=== PATIENT | female | born 1990 | race Caucasian/White ===

== ENCOUNTER 2020-05-01 12:15 | Observation (INO) | payer BC ==
[~2020-05-01] VITALS: Ht 162.6 cm; Wt 112.1 kg
[2020-05-01] MEDS ORDERED: SODIUM CHLORIDE 0.9% 1000ML 1,000 ML IV STA (12:27)
[2020-05-01 13:42] LABS: CLARITY,URINE CLEAR (CLEAR); COLOR,URINE YELLOW (YELLOW); KETONES,URINE NEGATIVE (NEGATIVE); LEUKOCYTE ESTERASE ,URINE NEGATIVE (NEGATIVE); NITRITE,URINE NEGATIVE (NEGATIVE); PROTEIN,URINE DIPSTICK NEGATIVE (NEGATIVE)
[2020-05-01 13:43] LABS: BILIRUBIN,URINE NEGATIVE (NEGATIVE); PREGNANCY TEST, URINE NEGATIVE (NEGATIVE); URINE UROBILINOGEN 0.2 mg/dL (0.2 - 1)
--- NOTE | 2020-05-01 13:51 | NUR ---
numerous attempts at an iv unsuccessful; dr. sagastume informed
[2020-05-01 14:00] LABS: WBC,URINE (MAN) 0-5 /HPF (0-5)
[2020-05-01 14:01] LABS: BACTERIA,URINE MODERATE /HPF; EPITHELIAL CELLS,URINE MODERATE /LPF; RBC,URINE 0-5 /HPF (0-5)
[2020-05-01 14:08] LABS: BASOPHILS % 0.3 % (0.0-1.0); EOSINOPHILS # (AUTO) 0.1 (0.0-0.4); EOSINOPHILS % 0.9 % (0.0-6.0); HEMATOCRIT 40.4 % (34.2-44.1); HEMOGLOBIN 12.2 g/dL (12.0-16.0); LYMPHOCYTES # (AUTO) 3.1 (1.0-3.2); LYMPHOCYTES % 21.7 % (18.0-39.1); MEAN CORPUSCULAR HEMOGLOBIN 25.6 pg (28-32); MEAN CORPUSCULAR HGB CONC 30.2 g/dL (31-35); MEAN CORPUSCULAR VOLUME 84.7 fL (81-99); MONOCYTES # (AUTO) 0.6 (0.2-0.8); MONOCYTES % 4.3 % (4.4-11.3); NEUTROPHILS # (AUTO) 10.2 (2.1-6.9); NEUTROPHILS % 72.4 % (38.7-80.0); PLATELET COUNT 353 x10e3/uL (140-360); RED BLOOD COUNT 4.77 x10e6/uL (3.6-5.1); RED CELL DISTRIBUTION WIDTH 13.8 % (11.7-14.4)
[2020-05-01 14:29] LABS: ALANINE AMINOTRANSFERASE 18 IU/L (0-55); ALBUMIN 3.6 g/dL (3.5-5.0); ALKALINE PHOSPHATASE 85 IU/L (40-150); ANION GAP 14.6 mmol/L (8-16); BLOOD UREA NITROGEN 10 mg/dL (7-26); BUN/CREATININE RATIO 15 (6-25); CALCIUM 8.8 mg/dL (8.4-10.2); CARBON DIOXIDE 23 mmol/L (22-29); CHLORIDE 105 mmol/L (98-107); CREATINE KINASE 79 IU/L (29-168); CREATININE, SERUM 0.66 mg/dL (0.57-1.11); EST GLOMERULAR FILTRATION RATE > 60 ML/MIN (60-); GLUCOSE 82 mg/dL (74-118); POTASSIUM 4.6 mmol/L (3.5-5.1); SODIUM 138 mmol/L (136-145)
[2020-05-01] MEDS ORDERED: ONDANSETRON HCL INJ 2MG/ML 2ML 2 MG/ML VIAL IV ONE (15:14)
[2020-05-01] MEDS ORDERED: MECLIZINE HCL 12.5 MG TAB PO ONE (15:15)
--- NOTE | 2020-05-01 15:19 | Emergency Department Note ---
History of Present Illnes History of Present Illness Chief Complaint: Neurological History of Present Illness This is a 29 year old female arrived to the ED with concerns of elevated WBC count and platelets. Patient states she also feeling extremely lethargic week and unsteady on her feet. Chief Complaint Comment C/O OF SENSATION OF WANTING TO PASS OUT. SYMPTOMS STARTED 04/25. DENIES ANY SHORTNESS OF BREATH OR CHEST PAIN. Apr HAD BLOOD WORK DRAWN. SHE WAS TOLD SHE HAD ELEVATED WBC/PLATELETS AND HAD THEM REDRAWN APR 27 AND TOLD THE BLOOD WORK HAD NOT CHANGED. SHE WAS REFERED TO A SPORTS DOCTOR. SHE HAS BEEN WAITING FOR THEIR CALL TO SET UP APPT. Historian: Patient Arrival Mode: Car Additional Treatment PEOPLESOFT FUNCTIONAL ANALYST: NONE Onset (how long ago): day(s) Severity: mild Duration (how long): day(s) Timing of current episode: constant Progression: waxing and waning Chronicity: recurrent Relieving factors: none Exacerbating factors: none Past Medical/Family History Physician Review I have reviewed the patient's past medical and family history. Any updates have been documented here. Past Medical History Recent Fever: No Clinical Suspicion of Infectio: No New/Unexplained Change in Ment: No Past Medical History: None, Depression, GERD Other Medical History: BIPOLAR Past Surgical History: T&A Other Surgery: WISDOM TEETH LEFT FOOT BENIGN TUMOR RIGHT FOOT FACIATIS Social History Smoking Cessation: Never Smoker Counseling Performed: No Alcohol Use: None Any Illegal Drug Use: No Other Any Pre-Existing Lines (PICC,: No Review of Systems Review of Systems Constitutional: Reports no symptoms EENTM: Reports no symptoms Cardiovascular: Reports no symptoms Respiratory: Reports no symptoms Gastrointestinal: Reports no symptoms Genitourinary: Reports no symptoms Musculoskeletal: Reports no symptoms Integumentary: Reports no symptoms Neurological: Reports no symptoms Psychological: Reports no symptoms Endocrine: Reports no symptoms Hematological/Lymphatic: Reports no symptoms Physical Exam Related Data Allergies: Coded Allergies: No Known Allergies (Unverified , 05/01/20) Triage Vital Signs Vital Signs Date Time Temp Pulse Resp B/P (MAP) Pulse Ox O2 Delivery O2 Flow Rate FiO2 05/01/20 12:34 98.4 81 18 131/88 100 Room Air Vital signs reviewed: Yes Physical Exam CONSTITUTIONAL Constitutional: Present well-developed, Present well-nourished, Present obese HENT HENT: Present normocephalic, Present atraumatic, Present oropharynx clear/moist, Present nose normal HENT L/R: Present left ext ear normal, Present right ext ear normal EYES Eyes: Reports PERRL, Reports conjunctivae normal NECK Neck: Present ROM normal PULMONARY Pulmonary: Present effort normal, Present breath sounds normal CARDIOVASCULAR Cardiovascular: Present regular rhythm, Present heart sounds normal, Present capillary refill normal, Present normal rate GASTROINTESTINAL Abdominal: Present soft, Present nontender, Present bowel sounds normal GENITOURINARY Genitourinary: Present exam deferred SKIN Skin: Present warm, Present dry MUSCULOSKELETAL Musculoskeletal: Present ROM normal NEUROLOGICAL Neurological: Present alert, Present oriented x 3, Present no gross motor or sensory deficits PSYCHOLOGICAL Psychological: Present mood/affect normal, Present judgement normal Results Laboratory Result Diagram: 05/01/20 1400 05/01/20 1400 Laboratory Laboratory Tests Test 05/01/20 14:00 05/01/20 12:46 White Blood Count 14.14 x10e3/uL (4.8-10.8) Red Blood Count 4.77 x10e6/uL (3.6-5.1) Hemoglobin 12.2 g/dL (12.0-16.0) Hematocrit 40.4 % (34.2-44.1) Mean Corpuscular Volume 84.7 fL (81-99) Mean Corpuscular Hemoglobin 25.6 pg (28-32) Mean Corpuscular Hemoglobin Concent 30.2 g/dL (31-35) Red Cell Distribution Width 13.8 % (11.7-14.4) Platelet Count 353 x10e3/uL (140-360) Neutrophils (%) (Auto) 72.4 % (38.7-80.0) Lymphocytes (%) (Auto) 21.7 % (18.0-39.1) Monocytes (%) (Auto) 4.3 % (4.4-11.3) Eosinophils (%) (Auto) 0.9 % (0.0-6.0) Basophils (%) (Auto) 0.3 % (0.0-1.0) Neutrophils # (Auto) 10.2 (2.1-6.9) Lymphocytes # (Auto) 3.1 (1.0-3.2) Monocytes # (Auto) 0.6 (0.2-0.8) Eosinophils # (Auto) 0.1 (0.0-0.4) Basophils # (Auto) 0.0 (0.0-0.1) Absolute Immature Granulocyte (auto 0.05 x10e3/uL (0-0.1) Sodium Level 138 mmol/L (136-145) Potassium Level 4.6 mmol/L (3.5-5.1) Chloride Level 105 mmol/L (98-107) Carbon Dioxide Level 23 mmol/L (22-29) Anion Gap 14.6 mmol/L (8-16) Blood Urea Nitrogen 10 mg/dL (7-26) Creatinine 0.66 mg/dL (0.57-1.11) Estimat Glomerular Filtration Rate > 60 ML/MIN (60-) BUN/Creatinine Ratio 15 (6-25) Glucose Level 82 mg/dL (74-118) Calcium Level 8.8 mg/dL (8.4-10.2) Total Bilirubin 0.3 mg/dL (0.2-1.2) Aspartate Amino Transf (AST/SGOT) 21 IU/L (5-34) Alanine Aminotransferase (ALT/SGPT) 18 IU/L (0-55) Alkaline Phosphatase 85 IU/L (40-150) Creatine Kinase 79 IU/L (29-168) Creatine Kinase MB 1.10 ng/mL (0-5.0) Troponin I 0.024 ng/mL (0-0.300) Total Protein 7.1 g/dL (6.5-8.1) Albumin 3.6 g/dL (3.5-5.0) Globulin 3.5 g/dL (2.3-3.5) Albumin/Globulin Ratio 1.0 (0.8-2.0) Urine Color Yellow (YELLOW) Urine Clarity Clear (CLEAR) Urine pH 7 (5 - 7) Urine Specific [place] 1.025 (1.010-1.025) Urine Protein Negative (NEGATIVE) Urine Glucose (UA) Negative (NEGATIVE) Urine Ketones Negative (NEGATIVE) Urine Blood Negative (NEGATIVE) Urine Nitrite Negative (NEGATIVE) Urine Bilirubin Negative (NEGATIVE) Urine Urobilinogen 0.2 mg/dL (0.2 - 1) Urine Leukocyte Esterase Negative (NEGATIVE) Urine RBC 0-5 /HPF (0-5) Urine WBC 0-5 /HPF (0-5) Urine Epithelial Cells Moderate /LPF (NONE) Urine Bacteria Moderate /HPF (NONE) Urine Test Negative (NEGATIVE) Imaging Imaging results reviewed: Yes Assessment & Plan Medical Decision Making MDM 29-year-old female arrives to the ED with concerns of elevated WBC and platelets. Platelets were normal in the ER leukocytosis was noted. Patient received a CT scan of her abdomen and pelvis to ensure no splenic process. ET findings were questional for a liver abscess/mass. Patient noted to have a [place] of pending white count from a week ago. Patient was admitted for an MRI further workup and management. Assessment & Plan Final Impression: (1) Liver mass Depart Disposition: ADMITTED Last Vital Signs Date Time Temp Pulse Resp B/P (MAP) Pulse Ox O2 Delivery O2 Flow Rate FiO2 05/01/20 14:27 80 17 135/83 100 Room Air 05/01/20 12:34 98.4 Medications in the ED Sodium Chloride 1,000 ml @ 0 mls/hr Q0M STAT IV Last administered on 05/01/20at 13:59; Admin Dose 999 MLS/HR; Start 05/01/20 at 12:27; Stop 05/01/20 at 12:29; Status DC KALEE ENG, May 01, 2020 15:19
[2020-05-01] MEDS ORDERED: SODIUM CHLORIDE 0.9% 50ML 50 ML ONE (15:37)
[2020-05-01] MEDS ORDERED: IOPAMIDOL 370 MG/ML 200 ML INFUS..BTL INJ ONE (15:38)
--- NOTE | 2020-05-01 16:04 | NUR ---
PT REQUESTED TO TAKE HER OWN REFLUX MEDICATION; GAVE THE OKAY
--- NOTE | 2020-05-01 16:15 | Diagnostic Imaging Report ---
EXAM: CT Abdomen and Pelvis WITH contrast INDICATION: Leukocytosis. COMPARISON: None. TECHNIQUE: Abdomen and pelvis were scanned utilizing a multidetector helical scanner from the lung base to the pubic symphysis after administration of IV contrast. Coronal and sagittal reformations were obtained. Routine protocol was performed. Scan was performed when during portal venous phase. IV CONTRAST: 100 cc of Isovue-370. ORAL CONTRAST: Water COMPLICATIONS: None RADIATION DOSE: Total DLP: 847.8 mGy*cm Estimated effective dose: (DLP x 0.015 x size factor) mSv CTDIvol has been reviewed. It is below the limits set by the Radiation Protocol Committee (RPC). FINDINGS: LINES and TUBES: None. LOWER THORAX: Unremarkable HEPATOBILIARY: Hepatic dome is partially excluded from the [id number]. Diffuse mild hepatic steatosis. There is a somewhat linear/ovoid appearing hypodensity in the periphery of the right hepatic lobe, measuring up to 2.2 cm on series 2, image 14. No biliary ductal dilation. No evidence of intraparenchymal or subcapsular hematoma. GALLBLADDER: No radio-opaque stones or sludge. No wall thickening. SPLEEN: No splenomegaly. PANCREAS: No focal masses or ductal dilatation. ADRENALS: No adrenal nodules KIDNEYS/URETERS: Kidneys enhance symmetrically. No evidence of hydronephrosis, solid mass, or stone. GI TRACT: No evidence of wall thickening or distension. Appendix is normal. Moderate amount of stool in the colon. PELVIC ORGANS/BLADDER: Unremarkable. LYMPH NODES: No lymphadenopathy. VESSELS: Unremarkable. PERITONEUM / RETROPERITONEUM: No free air or fluid. BONES AND SOFT TISSUES: Unremarkable. CONCLUSION: Somewhat linear/ovoid 2.2 cm hypodensity in the periphery of the right hepatic lobe. Differential includes hepatic laceration, however there is no evidence of adjacent hematoma or soft tissue abnormality. Hepatic mass or abscess are also on the differential. Recommend clinical correlation. Suggest follow-up liver protocol CT or MRI if there is no history of trauma. No evidence of lymphadenopathy in the abdomen or pelvis. Signed by: Dr. Magda Amezcua MD on 05/01/2020 4:12 PM
--- NOTE | 2020-05-01 16:38 | NUR ---
DR. ENG IN TO SPEAK WITH THE PATIENT RE POC/PENDING ADMISSION
--- OUTSIDE RECORDS SUMMARY | 2020-05-01 16:54 | XMS REPORT | Clinical Summary ---
Author Author [facility] Address Unknown Phone Unavailable Care Team Providers Care Color Finisher Name Role Phone Asked, No Pcp PCP Unavailable Allergies No Known Active Allergies Medications Not on file Active Problems Not on file Social History Date Tobacco Use Types Packs/Day Years Used Never Assessed Sex Assigned at Date Recorded Not on file Last Filed Vital Signs Not on file Plan of Treatment Health Maintenance Due Date Last Done Comments CERVICAL CANCER SCREENING 2011 INFLUENZA VACCINE 02/13/2020 Results Not on fileafter 05/01/2019 Insurance Type Payer Benefit Subscriber ID Effective Phone Address Plan / Dates Group HMO CIGLIZANDRO MCINTOSH [id number] 2017-P LOCAL resent PLUS/SUREF IT Advance Directives For more information, please contact: [phone] Patient Mobile Paint Specialist Explanation Type Date Recorded Advance Directives, Living Will and Medical Power of Human Resource Analyst
--- OUTSIDE RECORDS SUMMARY | 2020-05-01 16:54 | XMS REPORT | Continuity of Care Document ---
Author Author [facility] t Organization [facility] Address [address] [place] [address] Phone Unavailable Care Team Providers Care Bond Analyst Name Role Phone Asked, Pcp No PCP Unavailable Johanna ENG Attphys Unavailable Corby LOERA, Toby Attphys Amy LOERA, Elyssa Attphys Vls-Lab Attphys Unavailable Problems This patient has no known problems. Allergies, Adverse Reactions, Alerts This patient has no known allergies or adverse reactions. Social History Social Habit Start Date Stop Date Quantity Comments Source Sex Assigned At Alfred bobrocael Gonzalez Medications This patient has no known medications. Procedures This patient has no known procedures. Plan of Care Planned Activity Planned Date Details Comments Source Future Scheduled Test 2020-02-13 00:00:00 INFLUENZA VACCINE [code = INFLUENZA VACCINE] [facility] Future Scheduled Test 2011 00:00:00 Screening for eris gnant neoplasm of cervix (procedure) [code = 754468523] [facility] Encounters Start Date/Time End Date/Time Encounter Type Admission Type Attendi RUST Care Department Encounter ID Source 2020-04-29 17:41:00 2020-04-29 17:41:00 Emergency E [id number] [facility] 2020-04-29 00:00:00 2020-04-29 00:00:00 Telephone Toby Tavarez [facility] [id number] 2020-04-29 00:00:00 2020-04-29 00:00:00 Telephone Elyssa Reyes [facility] [id number] 2020-04-28 00:00:00 2020-04-28 00:00:00 Telephone Toby Tavarez [facility] [id number] 2020-04-28 00:00:00 2020-04-28 00:00:00 [facility] [id number] 2020-04-27 14:45:02 2020-04-27 15:00:02 Decision Analyst Visit V ls-Lab [facility] [id number] 2020-04-27 00:00:00 2020-04-27 00:00:00 Telephone José Miguel Tavarezmichael [facility] [id number] 2020-04-25 13:19:20 2020-04-26 14:11:27 Office Visit José Miguel Ruizmichael [facility] [id number] 2020-04-26 00:00:00 2020-04-26 00:00:00 Telephone Elyssa Reyes [facility] [id number] Results Test Description Test Time Test Comments Results Result Comments Source CT ABDOMEN/PELVIS W 2020-05-01 16:03:00 [facility] : 1990 Sex: F [place] [address] Patient Name: MAX RAGSDALE MR #: [id number] : 1990 Age/Sex: 29/F Req #: [id number] Adm Physician: Ordered by: KALEE ENG DO Report #: [id number] Location: ER Room/Bed: Procedure: [id number] CT/CT ABDOMEN/PELVIS W Exam Date: 05/01/20 Exam Time: 1537 REPORT STATUS: Signed EXAM: CT Abdomen and Pelvis WITH contrast INDICATION: Leukocytosis. COMPARISON: None. TECHNIQUE: Abdomen and pelvis were scanned utilizing a multidetector helical scanner from the lung base to the pubic symphysis after administration of IV contrast. Coronal and sagittal reformations were obtained. Routine protocol was performed. Scan was performed when during portal venous phase. IV CONTRAST: 100 cc of Isovue-370. ORAL CONTRAST: Water COMPLICATIONS: None RADIATION DOSE: Total DLP: 847.8 mGy*cm Estimated effective dose: (DLP x 0.015 x size factor) mSv CTDIvol has be en reviewed. It is below the limits set by the Radiation Protocol Committee (RPC). FINDINGS: LINES and TUBES: None. LOWER THORAX: Unremarkable HEPATOBILIARY: Hepatic dome is partially excluded from the [id number]. Diffuse mild hepatic steatosis. There is a somewhat linear/ovoid appearing hypodensity in the periphery of the right hepatic lobe, measuring up to 2.2 cm on series 2, image 14. No biliary ductal dilation. No evidence of intraparenchymal or subcapsular hematoma. GALLBLADDER: No radio-opaque stones or sludge. No wall thickening. SPLEEN: No splenomegaly. PANCREAS: No focal masses or ductal dilatation. ADRENALS: No adrenal nodules KIDNEYS/URETERS: Kidneys enhance symmetrically. No evidence of hydronephrosis, solid mass, or stone. GI TRACT: No evidence of wall thickening or distension. Appendix is normal. Moderate amount of stool in the colon. PELVIC ORGANS/BLADDER: Unremarkable. LYMPH NODES: No lymphadenopathy. VESSELS: Unremarkable. PERITONEUM / RETROPERITONEUM: No free air or fluid. BONES AND SOFT TISSUES: Unremarkable. CONCLUSION: Somewhat linear/ovoid 2.2 cm hypodensity in the periphery of the right hepatic lobe. Differential includes hepatic laceration, however there is no evidence of adjacent hematoma or soft tissue abnormality. Hepatic mass or abscess are also on the differential. Recommend clinical correlation. Suggest follow-up liver protocol CT or MRI if there is no history of trauma. No evidence of lymphadenopathy in the abdomen or pelvis. Signed by: Dr. Roosevelt Alaniz MD on 05/01/2020 4:12 PM Dictated By: ROOSEVELT ALANIZ MD 161 Transcribed By: SAVAAN on 05/01/201611 COPY TO: KALEE ENG DO
[2020-05-01] MEDS ORDERED: SERTRALINE HCL50 MG (18:21)
[2020-05-01] MEDS ORDERED: PANTOPRAZOLE SO40 MG (18:21)
[2020-05-01] MEDS ORDERED: ARIPIPRAZOLE5 MG (18:21)
[2020-05-01 18:40] VITALS: BP 133/76
[2020-05-01 20:11] VITALS: BP 121/67
[2020-05-01 20:16] VITALS: BP 121/67
[2020-05-01] MEDS ORDERED: INFLUENZA VIRUS VAC SPLIT INJ 0.5 ML SYR IM SCH (20:16)
[2020-05-01 20:20] VITALS: BP 121/67
[2020-05-01] MEDS ORDERED: ACETAMINOPHEN 325 MG TAB PO PRN (20:30)
[2020-05-01] MEDS ORDERED: ZOLPIDEM TARTRATE 5 MG TAB PO PRN (20:30)
[2020-05-01] MEDS ORDERED: ONDANSETRON HCL INJ 2MG/ML 2ML 2 MG/ML VIAL IV PRN (20:30)
--- NOTE | 2020-05-01 20:31 | NUR ---
Spoke to Dr Gamez regarding patient requesting home medication abilify 5 mg po for bedtime, no PRN meds, c/o headache 11/21: new orders for PRN meds. Okay to remove tele for MRI in am.
[2020-05-01] MEDS: ARIPIPRAZOLE 5 MG TABLET PO SCH (21:01)
[2020-05-01 23:51] VITALS: BP 105/51
[2020-05-02 05:22] VITALS: BP 106/60
--- NOTE | 2020-05-02 06:21 | NUR ---
H&P cc: light headedness HPI: 29yoF, PCP , developed dizziness/lightheadedness, but no abdominal pain, found to have liver mass. PMH: mood d/o, GERD, HTN PSHx: tonsillectomy, plantar fasciitis related, left leg tumor (benign) Allergies; see emr Fh'SH; no cigs/illicits meds; see MAR ROS: no f/c/s/N/V/D/DE [place] CRUZ/cp/sob/skin rash/abdominal pain/confusion/vision changes/focal limb weakness v/s revd PE tired appearing anicteric ns1s2 mod bs soft nt nd no e/t; negative Henderson's sign skin dry n. affect a&ox3; rizo labs/meds revd A/P: 29yoF Right liver mass- check MRI; GI eval Leukocytosis- empiric tx with zosyn in case it is an abscess; GERD- ppi Mood d/o- SSI Severe obesity- 1/2 portion sizes needed BMI 42.4- screen for DM and check lipids Prop; scd; ppi Dispo: f/u MRI TRE DOMINGUEZ MD, PHD
[2020-05-02 06:31] LABS: BASOPHILS % 0.3 % (0.0-1.0); EOSINOPHILS # (AUTO) 0.2 (0.0-0.4); HEMATOCRIT 37.1 % (34.2-44.1); HEMOGLOBIN 11.3 g/dL (12.0-16.0); LYMPHOCYTES # (AUTO) 4.1 (1.0-3.2); LYMPHOCYTES % 39.5 % (18.0-39.1); MEAN CORPUSCULAR HEMOGLOBIN 25.9 pg (28-32); MEAN CORPUSCULAR HGB CONC 30.5 g/dL (31-35); MEAN CORPUSCULAR VOLUME 84.9 fL (81-99); MONOCYTES # (AUTO) 0.7 (0.2-0.8); MONOCYTES % 6.2 % (4.4-11.3); NEUTROPHILS # (AUTO) 5.4 (2.1-6.9); NEUTROPHILS % 51.7 % (38.7-80.0); PLATELET COUNT 333 x10e3/uL (140-360); RED BLOOD COUNT 4.37 x10e6/uL (3.6-5.1)
[2020-05-02] MEDS ORDERED: SODIUM CHLORIDE 0.9% 250ML 250 ML ONE (06:47)
[2020-05-02 06:59] LABS: ALANINE AMINOTRANSFERASE 15 IU/L (0-55); ALBUMIN 3.2 g/dL (3.5-5.0); ALBUMIN/GLOBULIN RATIO 1.1 (0.8-2.0); ALKALINE PHOSPHATASE 78 IU/L (40-150); BLOOD UREA NITROGEN 7 mg/dL (7-26); BUN/CREATININE RATIO 9 (6-25); CALCIUM 8.5 mg/dL (8.4-10.2); CARBON DIOXIDE 26 mmol/L (22-29); CHLORIDE 106 mmol/L (98-107); CREATININE, SERUM 0.75 mg/dL (0.57-1.11); EST GLOMERULAR FILTRATION RATE > 60 ML/MIN (60-); GLUCOSE 99 mg/dL (74-118); SODIUM 140 mmol/L (136-145)
[2020-05-02 07:12] LABS: CHOL/HDL RATIO 2.7 (3.0-3.6)
--- NOTE | 2020-05-02 07:15 | NUR ---
Bedside report and walking rounds completed with oncoming nurse. Patient in bed with call light within reach. No issues or concerns noted.
[2020-05-02] MEDS: PIPER-TAZ 3.375 GM 50 ML IV SCH ×3 (07:32→18:06)
[2020-05-02 08:07] VITALS: BP 137/67
[2020-05-02 08:40] VITALS: BP 137/67
[2020-05-02] MEDS ORDERED: SODIUM CHLORIDE 0.9% 50ML 50 ML ONE (08:41)
[2020-05-02] MEDS ORDERED: GADOBENATE DIMEGLUMINE 1 ML IV ONE (08:41)
[2020-05-02] MEDS: PANTOPRAZOLE SOD 40 MG TABEC PO SCH (09:40)
[2020-05-02] MEDS: SERTRALINE HCL 50 MG TAB PO SCH (09:40)
[2020-05-02 12:21] VITALS: BP 130/60
--- NOTE | 2020-05-02 15:56 | Diagnostic Imaging Report ---
TECHNIQUE: MRI of the abdomen WITHOUT and WITH intravenous contrast. INDICATION: 29-year-old woman with liver mass. COMPARISON: Abdomen and pelvis CT 05/01/2020. FINDINGS: LOWER THORAX: Unremarkable. LIVER: Diffuse decrease in signal intensity of the liver on opposed phase imaging, consistent with hepatic steatosis. 1.8 x 1.5 cm lobulated area of increased focal fatty infiltration in segment VIII without associated arterial enhancement, washout, or pseudocapsule. BILIARY: Gallbladder is unremarkable. No biliary ductal dilatation or filling defect. SPLEEN: No splenomegaly. PANCREAS: No focal masses or ductal dilatation. ADRENALS: No adrenal nodules. KIDNEYS/URETERS: No hydronephrosis or solid mass lesions. PERITONEUM/RETROPERITONEUM: No free fluid. LYMPH NODES: No lymphadenopathy. VESSELS: Unremarkable. GI TRACT: No distention or wall thickening. BONES AND SOFT TISSUES: Unremarkable. IMPRESSION: Diffuse hepatic steatosis with increased focal fatty infiltration in the periphery of segment VIII, which correlates with the finding on recent CT. No suspicious liver lesion. Signed by: Gena Walters MD on 05/02/2020 3:52 PM
[2020-05-02 17:39] VITALS: BP 133/84
[2020-05-02 20:00] VITALS: BP 128/67
[2020-05-02] MEDS ORDERED: ALPRAZOLAM 0.25 MG TAB PO PRN (21:15)
[2020-05-02] MEDS: ARIPIPRAZOLE 5 MG TABLET PO SCH (21:26)
[2020-05-03 00:13] VITALS: BP 118/75
[2020-05-03 00:18] VITALS: BP 118/75
[2020-05-03] MEDS: PIPER-TAZ 3.375 GM 50 ML IV SCH ×2 (00:54→05:55)
[2020-05-03 05:24] VITALS: BP 114/75
[2020-05-03 05:42] LABS: BASOPHILS % 0.3 % (0.0-1.0); EOSINOPHILS # (AUTO) 0.3 (0.0-0.4); EOSINOPHILS % 2.7 % (0.0-6.0); HEMATOCRIT 36.9 % (34.2-44.1); HEMOGLOBIN 11.3 g/dL (12.0-16.0); LYMPHOCYTES # (AUTO) 4.6 (1.0-3.2); LYMPHOCYTES % 37.8 % (18.0-39.1); MEAN CORPUSCULAR HEMOGLOBIN 25.9 pg (28-32); MEAN CORPUSCULAR HGB CONC 30.6 g/dL (31-35); MEAN CORPUSCULAR VOLUME 84.4 fL (81-99); MONOCYTES # (AUTO) 0.7 (0.2-0.8); MONOCYTES % 5.6 % (4.4-11.3); NEUTROPHILS # (AUTO) 6.5 (2.1-6.9); NEUTROPHILS % 53.3 % (38.7-80.0); PLATELET COUNT 328 x10e3/uL (140-360); RED BLOOD COUNT 4.37 x10e6/uL (3.6-5.1); RED CELL DISTRIBUTION WIDTH 13.9 % (11.7-14.4); RETICULOCYTE % 1.6 % (0.8-2.2)
[2020-05-03 06:20] LABS: FERRITIN 37.74 ng/mL (4.63-204.00)
[2020-05-03] MEDS ORDERED: KEFLEX500 MG PO (06:21)
--- NOTE | 2020-05-03 06:23 | NUR ---
D/C summary Principal Dx: Hepatitic steatosis, Not a mass - MRI done; GI eval Leukocytosis- empiric tx with zosyn in case it is an abscess; UTI- IV zosyn, home on keflex Iron-deficiency anemia- ferrous sulfate Secondary Dx GERD- ppi Mood d/o- SSI Severe obesity- 1/2 portion sizes needed; Hba1c is normal BMI 42.4- screen for DM and check lipids Prop; scd; ppi Dispo: f/u MRI d/c home stable f/u pcp 2 days and 1 week d/c>35mins TRE DOMINGUEZ MD, PHD
--- NOTE | 2020-05-03 06:45 | NUR ---
SBAR BEDSIDE REPORT RECEIVED FROM PM SHIFT RN. PATIENT FOUND LYING IN BED IN NO ACUTE DISTRESS. PATIENT AAOX4 AND DENIES FURTHER NEEDS. PATIENT WAS EDUCATED ON FALL RISK PRECAUTIONS AND VERBALIZED UNDERSTANDING. CALL LIGHT AND BELONGINGS WERE PLACED NEARBY. WILL CONTINUE TO MONITOR.
--- NOTE | 2020-05-03 07:15 | NUR ---
CALL PLACED TO MARKETING SERVICES REP FOR CONSULT. NO ANSWER, LEFT VM
[2020-05-03 07:47] VITALS: BP 107/60
[2020-05-03 08:00] VITALS: BP 107/60
[2020-05-03] MEDS: PANTOPRAZOLE SOD 40 MG TABEC PO SCH (08:00)
[2020-05-03 08:10] LABS: EOSINOPHILS % (MANUAL) 2 % (0-7); LYMPHOCYTES % (MANUAL) 41 % (19-48); MONOCYTES % (MANUAL) 4 % (3.4-9.0); NEUTROPHILS % (MANUAL) 52 % (40-74); PLATELET ESTIMATE ADEQUATE; RBC MORPHOLOGY COMMENT NORMAL
[2020-05-03 08:11] LABS: PLATELET MORPHOLOGY COMMENT NORMAL
[2020-05-03] MEDS: SERTRALINE HCL 50 MG TAB PO SCH (08:48)
[2020-05-03] MEDS ORDERED: ONDANSETRON HCL 4 MG ORAL DISINTEGRATING TAB PO PRN (09:00)
--- NOTE | 2020-05-03 09:00 | NUR ---
[place] [phone] [place]SULT. NO ANSWER LEFT VM
--- NOTE | 2020-05-03 09:07 | NUR ---
RILEY,ELECTRON BEAM PHOTO MASK MAKER, WILL SEE THE PATIENT THIS MORNING.
[2020-05-03] MEDS ORDERED: INFLUENZA VIRUS VAC SPLIT INJ 0.5 ML SYR IM SCH (12:15)
--- NOTE | 2020-05-03 12:20 | NUR ---
PATIENT DISCHARGED HOME VIA PRIVATE VEHICLE. PERIPHERAL IV WAS DISCONTINUED, CATHETER INTACT WITHOUT RESISTANCE. DRY DRESSING APPLIED. TELEMETRY BOX WAS REMOVED, CLEANED, AND RETURNED TO THE MONITOR ROOM. PATIENT RECEIVED DISCHARGE PAPERWORK, WRITTEN PRESCRIPTION, AND EDUCATION MATERIAL. PATIENT VERBALIZED UNDERSTANDING.
--- NOTE | 2020-05-03 14:36 | NUR ---
Nutrition Screen Note RD Recommendation for Physician: -Continue current diet as ordered Plan of Care: RD following, monitoring for tolerance and adequacy Nutrition reason for involvement: MD consult Primary Diagnose(s): liver mass PMH: mood d/o, GERD, HTN, tonsillectomy, plantar fasciitis related, left leg tumor (benign) Ht: 64 in Wt:247.06 lb BMI: 42.4 kg/m2 IBW:[address] Assessment: (05/03/20) Chart reviewed. Labs and meds reviewed. Pt is a 29 year old female admitted with liver mass. Pt reports no appetite changes and she usually eats all of her meals. No weight loss reported and pt stated she usually weighs 245 lbs. No N/V or chewing/swallowing issues. RD received consult for low fat diet education for fatty liver. RD discussed and provided written materials regarding a fat restricted diet. Will continue to monitor Current Diet: regular/low fat diet Malnutrition Evaluation (05/03/20) The patient does not meet criteria for a specified degree of malnutrition at this time. Will re-evaluate at follow-up as appropriate. Diet Education Needs Assessment: RD received consult for low fat diet education for fatty liver. Learner(s): pt Barriers: no barriers identified Cultural/Language Modifications: no cultural/language modifications Readiness: acceptance Method: explanation/discussion/handout Topics: fat restricted diet Understanding/Compliance: pt verbalized understanding Nutrition Care Level: low Signed: Sully Chang, MOHINDER, LD
== END 2020-05-03 12:21 | disposition home or self-care (01) ==
LOC: ER 12:30 → ERHOLD 16:45 → MED/SURG 18:31
PROVIDERS: ADMIT Internal Medicine; ATTEND Internal Medicine
DX: K76.0 Fatty (change of) liver, not elsewhere classified (principal); K21.9 Gastro-esophageal reflux disease without esophagitis; F39 Unspecified mood [affective] disorder; Z68.41 Body mass index [BMI] 40.0-44.9, adult; E66.01 Morbid (severe) obesity due to excess calories; N39.0 Urinary tract infection, site not specified; D50.9 Iron deficiency anemia, unspecified
CPT/HCPCS: 36415 ×3; 74177; 74183; 80053 ×2; 80061; 81001; 81025; 82550; 82553; 82607; 82728; 82746; 83036; 83540; 84466; 84484; 85025 ×3; 85045; 93005; 99284; A9577; G0378 ×3; J2405; J2543 ×2; J7030; J7050; J8597; Q9967; S0164 ×2; U0002

== ENCOUNTER 2021-01-28 00:22 | Emergency (ER) | payer BC ==
[~2021-01-28] VITALS: Ht 162.6 cm; Wt 112.0 kg
[~2021-01-28 00:22] MED LIST: ARIPIPRAZOLE5 MG; KEFLEX500 MG PO; PANTOPRAZOLE SO40 MG; SERTRALINE HCL50 MG
[2021-01-28] MEDS ORDERED: ONDANSETRON HCL INJ 2MG/ML 2ML 2 MG/ML VIAL IV STA (00:42)
[2021-01-28] MEDS ORDERED: KETOROLAC TROMETHAMINE 30 MG/ML VIAL IV STA (00:42)
[2021-01-28] MEDS ORDERED: ONDANSETRON HCL 4 MG ORAL DISINTEGRATING TAB PO ONE (00:45)
[2021-01-28] MEDS ORDERED: ACETAMINOPHEN 325 MG TAB PO ONE (00:45)
[2021-01-28] MEDS ORDERED: LACTATED RINGER'S 1,000 ML INJ ONE (01:00)
[2021-01-28 01:13] LABS: BASOPHILS % 0.1 % (0.0-1.0); HEMATOCRIT 46.8 % (34.2-44.1); HEMOGLOBIN 14.4 g/dL (12.0-16.0); LYMPHOCYTES # (AUTO) 2.2 (1.0-3.2); LYMPHOCYTES % 31.5 % (18.0-39.1); MEAN CORPUSCULAR HGB CONC 30.8 g/dL (31-35); MEAN CORPUSCULAR VOLUME 81.4 fL (81-99); MONOCYTES # (AUTO) 0.5 (0.2-0.8); MONOCYTES % 7.4 % (4.4-11.3); NEUTROPHILS # (AUTO) 4.2 (2.1-6.9); NEUTROPHILS % 60.6 % (38.7-80.0); PLATELET COUNT 272 x10e3/uL (140-360); RED BLOOD COUNT 5.75 x10e6/uL (3.6-5.1); RED CELL DISTRIBUTION WIDTH 14.3 % (11.7-14.4)
[2021-01-28 01:32] LABS: ALBUMIN 4.3 g/dL (3.5-5.0); ALBUMIN/GLOBULIN RATIO 1.1 (0.8-2.0); ANION GAP 18.6 mmol/L (8-16); CALCIUM 8.9 mg/dL (8.4-10.2); CREATININE, SERUM 0.85 mg/dL (0.57-1.11); POTASSIUM 3.6 mmol/L (3.5-5.1)
[2021-01-28] MEDS ORDERED: ONDANSETRON ODT4 MG PO (01:41)
== END 2021-01-28 03:15 | disposition home or self-care (01) ==
LOC: ER 01:00
DX: U07.1 COVID-19 (principal); R00.0 Tachycardia, unspecified
CPT/HCPCS: 36415; 80053; 84702; 85025; 99284; J1885; J2405; J7121

== ENCOUNTER → 2024-06-19 | Day surgery (SDC) | payer BC ==
[~2024-06-19] MED LIST changes: +ACETAMINOPHEN 1000 MG/100 ML 100 ML IV ONE; +CEFAZOLIN SODIUM 2 GM ONE; +DEXAMETHASONE SOD PHOS INJ 4 MG/ML SDV ONE; +EPHEDRINE SULFATE INJ 50 MG/ML VIAL ONE; +FENTANYL CITRATE/PF 100MCG/2 ML INJ ONE; +GLYCOPYRROLATE INJ 0.2 MG/ML VIAL ONE; +HYDROCHLOROTHIA25 MG PO; +KETOROLAC TROMETHAMINE 30 MG/ML VIAL ONE; +LACTATED RINGER'S 1,000 ML ONE; +LIDOCAINE HCL 2% LOCAL INJ 5 ML SDV VIAL INJ ONE; +OMEPRAZOLE40 MG PO; +ONDANSETRON ODT4 MG PO; +PREBIOTIC PO; +PRO PO; +PROPOFOL IV EMULSION 10 MG/ML 20 ML VIAL ONE; +SEVOFLURANE INHAL SOLN 250 ML PEN BTL ONE; +WOMEN MULTIVIT1 EAC1 PO
[2024-06-19 09:03] LABS: BASOPHILS % 0.4 % (0.0-1.0); EOSINOPHILS # (AUTO) 0.1 (0.0-0.4); EOSINOPHILS % 1.3 % (0.0-6.0); HEMATOCRIT 39.3 % (34.2-44.1); HEMOGLOBIN 11.6 g/dL (12.0-16.0); LYMPHOCYTES # (AUTO) 2.9 (1.0-3.2); LYMPHOCYTES % 30.2 % (18.0-39.1); MEAN CORPUSCULAR HEMOGLOBIN 24.9 pg (28-32); MEAN CORPUSCULAR HGB CONC 29.5 g/dL (31-35); MEAN CORPUSCULAR VOLUME 84.5 fL (81-99); MONOCYTES # (AUTO) 0.5 (0.2-0.8); MONOCYTES % 5.1 % (4.4-11.3); NEUTROPHILS % 62.7 % (38.7-80.0); PLATELET COUNT 353 x10e3/uL (140-360); RED BLOOD COUNT 4.65 x10e6/uL (3.6-5.1); RED CELL DISTRIBUTION WIDTH 14.9 % (11.7-14.4); WHITE BLOOD COUNT 9.55 x10e3/uL (4.8-10.8)
[2024-06-19 09:31] LABS: CALCIUM 9.2 mg/dL (8.4-10.2); CREATININE, SERUM 0.67 mg/dL (0.57-1.11)
[2024-06-19 12:49] VITALS: TEMP 98.8
[2024-06-19] MEDS: FENTANYL CITRATE/PF 100MCG/2 ML INJ ONE (13:10)
[2024-06-19 14:05] VITALS: BP 143/85; PULSE 69; RESP 18; O2SAT 97
== END | disposition home or self-care (01) ==
LOC: OR 08:39
PROVIDERS: ATTEND Podiatrist Foot Surgery
DX: M72.2 Plantar fascial fibromatosis (principal); M77.31 Calcaneal spur, right foot; I10 Essential (primary) hypertension; E66.01 Morbid (severe) obesity due to excess calories; K21.9 Gastro-esophageal reflux disease without esophagitis; F41.9 Anxiety disorder, unspecified; Z88.6 Allergy status to analgesic agent; Z79.899 Other long term (current) drug therapy
CPT/HCPCS: 28100; 29893; 36415; 80048; 81025; 85025; 88304; 88311; 93005; J0131; J0690; J1100; J1885; J2003; J2470; J2704; J3010; J7121; 76000